=== PATIENT | female | born 1995 | race Caucasian/White ===

== ENCOUNTER 2018-01-02 22:26 | Inpatient (IN) | payer BC ==
[2018-01-02] MEDS ORDERED: ACETAMINOPHEN 325 MG TAB PO (23:00)
[2018-01-02] MEDS: ONDANSETRON 4 MG INJ IV (23:42)
[2018-01-02] MEDS: HYDROmorphONE 0.5 MG/0.5 ML SYG IV (23:43)
[2018-01-02] MEDS: SOD CHLORIDE 0.9% 1,000 ML IV (23:43)
[2018-01-02] MEDS: LEVOFLOXACIN 500MG/D5W (PMX) 100 ML IVPB (23:43)
[2018-01-03] MEDS: metroNIDAZOLE 500 MG/NS (PMX) 100 ML IVPB ×2 (01:04→06:10)
[2018-01-03] MEDS: morphine 2 MG INJ IV ×3 (01:05→10:36)
[2018-01-03] MEDS: ONDANSETRON 4 MG INJ IV ×3 (04:30→20:17)
[2018-01-03] MEDS: HYDROmorphONE 0.5 MG/0.5 ML SYG IV ×5 (04:30→22:26)
[2018-01-03] MEDS: PANTOPRAZOLE 40 MG INJ IV ×2 (06:10→20:17)
[2018-01-03 06:21] LABS: ADD MAN DIFF? NO
[2018-01-03 06:32] LABS: EOSINOPHILS # 0.1 10^3/ul (0.0-0.5); EOSINOPHILS % 1.2 % (0.0-7.0); HEMATOCRIT 36.2 % (37.0-47.0); HEMOGLOBIN 12.1 g/dl (12.0-16.0); LYMPHOCYTES # 1.6 10^3/ul (0.8-2.9); LYMPHOCYTES % 37.8 % (15.0-51.0); MEAN CORPUSCULAR HEMOGLOBIN 27.9 pg (29.0-33.0); MEAN CORPUSCULAR HGB CONC 33.4 g/dl (32.0-37.0); MEAN CORPUSCULAR VOLUME 83.4 fl (82.0-101.0); MEAN PLATELET VOLUME 10.9 fl (7.4-10.4); MONOCYTE # 0.3 10^3/ul (0.3-0.9); MONOCYTES % 7.7 % (0.0-11.0); NEUTROPHIL # 2.3 10^3/ul (1.6-7.5); NEUTROPHILS % 53.1 % (39.0-77.0); PLATELET COUNT 179 10^3/UL (140-415); RED BLOOD COUNT 4.34 10^6/ul (4.20-5.40); RED CELL DISTRIBUTION WIDTH 11.7 % (11.5-14.5)
[2018-01-03 06:32] LABS: WHITE BLOOD COUNT 4.3 10^3/ul (4.8-10.8)
[2018-01-03 06:57] LABS: ALANINE AMINOTRANSFERASE 25 IU/L (13-69); ALBUMIN 3.2 g/dl (3.3-4.9); ALBUMIN/GLOBULIN RATIO 1.23; ALKALINE PHOSPHATASE 35 IU/L (42-121); ANION GAP 12 (8-16); ASPARTATE AMINO TRANSFERASE 17 IU/L (15-46); BILIRUBIN,INDIRECT 0.5 mg/dl (0-1.1); BILIRUBIN,TOTAL 0.5 mg/dl (0.2-1.3); BLOOD UREA NITROGEN 4 mg/dl (7-20); CARBON DIOXIDE 29 mmol/L (21-31); CHLORIDE 107 mmol/L (97-110); CREATININE 0.89 mg/dl (0.44-1.00); GLUCOSE 74 mg/dl (70-220); POTASSIUM 4.2 mmol/L (3.5-5.1); SODIUM 144 mmol/L (135-144); TOTAL PROTEIN 5.8 g/dl (6.1-8.1)
[2018-01-03 07:10] LABS: INR 1.27; PROTIME 16.1 Sec (11.9-14.9); PT RATIO 1.3
[2018-01-03] MEDS ORDERED: LIDOCAINE 1%/EPI 30 ML INJ (10:54)
[2018-01-03] MEDS ORDERED: PROPOFOL 20 ML (11:58)
[2018-01-03] MEDS ORDERED: ROCURONIUM 50 MG INJ (11:58)
[2018-01-03] MEDS ORDERED: MIDAZOLAM 1 MG/ML 2 ML INJ (11:58)
[2018-01-03] MEDS ORDERED: LIDOCAINE 1% (MDV) 20 ML INJ (11:58)
[2018-01-03] MEDS ORDERED: ROPIVACAINE 0.2% 20 ML VIAL (12:07)
[2018-01-03] MEDS ORDERED: ACETAMINOPHEN 1000MG/100ML IV 100 ML (12:19)
[2018-01-03] MEDS ORDERED: DEXAMETHASONE 4 MG/ML 1 ML INJ (12:19)
[2018-01-03] MEDS ORDERED: ONDANSETRON 4 MG INJ (12:19)
[2018-01-03] MEDS ORDERED: FAMOTIDINE 20 MG INJ (12:20)
[2018-01-03] MEDS: SOD CHLORIDE 0.9% 1,000 ML IV ×2 (12:20→20:16)
[2018-01-03] MEDS: BUPIVACAINE 0.25% (MPF) 30 ML INJ (12:25)
[2018-01-03] MEDS: SUCRALFATE 1 GM TAB PO ×3 (13:00→20:17)
[2018-01-03] MEDS ORDERED: SUGAMMADEX SODIUM 200 MG/2 ML VIAL IV (13:05)
[2018-01-03] MEDS ORDERED: HYDROmorphONE (0.2 MG/ML) 10ML SYG IV ×2 (13:17→13:30)
[2018-01-03] MEDS: HYDROmorphONE (0.2 MG/ML) 10ML SYG IV (13:32)
[2018-01-03] MEDS ORDERED: KETOROLAC 30 MG INJ (13:47)
[2018-01-03] MEDS: KETOROLAC 30 MG INJ IV (13:52)
[2018-01-03] MEDS ORDERED: FENTAnyl 50 MCG/ML VIAL (14:06)
[2018-01-03] MEDS: FENTAnyl 50 MCG/ML VIAL IV (14:14)
[2018-01-03] MEDS ORDERED: FENTAnyl 50 MCG/ML VIAL IV (14:30)
[2018-01-03] MEDS: KETOROLAC 15 MG INJ IV ×2 (18:15→23:59)
[2018-01-03] MEDS: SENNA/DOCUSATE NA (8.6MG/50MG) TAB PO (20:17)
[2018-01-03] MEDS: HYDROCODONE/APAP (5/325) TAB PO (20:17)
[2018-01-03] MEDS ORDERED: HYDROmorphONE 0.5 MG/0.5 ML SYG IM (21:33)
[2018-01-04] MEDS: ONDANSETRON 4 MG INJ IV ×2 (00:33→05:52)
[2018-01-04] MEDS: HYDROmorphONE 2 MG/ML SYG IV ×7 (01:19→20:37)
[2018-01-04] MEDS: HYDROCODONE/APAP (5/325) TAB PO (05:51)
[2018-01-04] MEDS: KETOROLAC 15 MG INJ IV (05:52)
[2018-01-04] MEDS: PANTOPRAZOLE 40 MG INJ IV ×2 (09:17→20:37)
[2018-01-04] MEDS: SUCRALFATE 1 GM TAB PO ×4 (09:17→20:37)
[2018-01-04 09:57] LABS: ALANINE AMINOTRANSFERASE 36 IU/L (13-69); ALBUMIN 3.3 g/dl (3.3-4.9); ALBUMIN/GLOBULIN RATIO 1.32; ALKALINE PHOSPHATASE 37 IU/L (42-121); ANION GAP 15 (8-16); ASPARTATE AMINO TRANSFERASE 40 IU/L (15-46); BILIRUBIN,INDIRECT 0.6 mg/dl (0-1.1); BILIRUBIN,TOTAL 0.6 mg/dl (0.2-1.3); BLOOD UREA NITROGEN 9 mg/dl (7-20); CALCIUM 8.6 mg/dl (8.4-10.2); CARBON DIOXIDE 25 mmol/L (21-31); CHLORIDE 107 mmol/L (97-110); CREATININE 0.86 mg/dl (0.44-1.00); GLUCOSE 81 mg/dl (70-220); POTASSIUM 4.2 mmol/L (3.5-5.1); SODIUM 143 mmol/L (135-144); TOTAL PROTEIN 5.8 g/dl (6.1-8.1)
[2018-01-04] MEDS: SOD CHLORIDE 0.9% 1,000 ML IV ×2 (10:35→15:00)
[2018-01-04] MEDS ORDERED: BISACODYL 10 MG SUPP PR (19:30)
[2018-01-05] MEDS: HYDROmorphONE 2 MG/ML SYG IV ×4 (00:15→13:24)
[2018-01-05] MEDS: SOD CHLORIDE 0.9% 1,000 ML IV ×3 (00:15→13:52)
[2018-01-05] MEDS: SUCRALFATE 1 GM TAB PO ×2 (09:24→13:23)
[2018-01-05] MEDS: PANTOPRAZOLE 40 MG INJ IV (09:24)
[2018-01-05] MEDS: POLYETHYLENE GLYCOL 17 GM PACKET PO (09:25)
== END 2018-01-05 15:25 | disposition home or self-care (01) | DRG 418 ==
LOC: MS2 22:26
PROC: 0FT44ZZ Resection of Gallbladder, Percutaneous Endoscopic Approach (ICD-10-PCS; principal; 2018-01-03 11:00)
PROC: 0FB04ZX Excision of Liver, Percutaneous Endoscopic Approach, Diagnostic (ICD-10-PCS; 2018-01-03 11:00)
DX: K80.20 Calculus of gallbladder without cholecystitis without obstruction (principal); Z68.1 Body mass index [BMI] 19.9 or less, adult; E44.0 Moderate protein-calorie malnutrition; K29.80 Duodenitis without bleeding; K29.70 Gastritis, unspecified, without bleeding; K44.9 Diaphragmatic hernia without obstruction or gangrene; K25.9 Gastric ulcer, unspecified as acute or chronic, without hemorrhage or perforation; K59.00 Constipation, unspecified; F32.9 Major depressive disorder, single episode, unspecified; F17.210 Nicotine dependence, cigarettes, uncomplicated
CPT/HCPCS: 76856; 80053; 85025; 85610; 87081; 88304; 88307; 88313

== ENCOUNTER 2018-08-23 15:16 | Emergency (ER) | payer BC ==
[2018-08-23 15:54] LABS: ADD MAN DIFF? NO
[2018-08-23] MEDS: ONDANSETRON 4 MG INJ IV ×2 (15:55→16:23)
[2018-08-23] MEDS: SOD CHLORIDE 0.9% 1,000 ML IV (15:55)
[2018-08-23 15:58] LABS: BASOPHILS % 0.1 % (0.0-2.0); HEMATOCRIT 45.4 % (37.0-47.0); HEMOGLOBIN 14.9 g/dl (12.0-16.0); LYMPHOCYTES # 0.6 10^3/ul (0.8-2.9); MEAN CORPUSCULAR HEMOGLOBIN 27.4 pg (29.0-33.0); MEAN CORPUSCULAR HGB CONC 32.8 g/dl (32.0-37.0); MEAN CORPUSCULAR VOLUME 83.6 fl (82.0-101.0); MEAN PLATELET VOLUME 10.4 fl (7.4-10.4); MONOCYTE # 0.1 10^3/ul (0.3-0.9); NEUTROPHIL # 8.4 10^3/ul (1.6-7.5); NEUTROPHILS % 91.7 % (39.0-77.0); PLATELET COUNT 293 10^3/UL (140-415); RED BLOOD COUNT 5.43 10^6/ul (4.20-5.40); RED CELL DISTRIBUTION WIDTH 14.2 % (11.5-14.5)
[2018-08-23 15:58] LABS: WHITE BLOOD COUNT 9.1 10^3/ul (4.8-10.8)
[2018-08-23 16:17] LABS: ALANINE AMINOTRANSFERASE 16 IU/L (13-69); ALBUMIN 4.9 g/dl (3.3-4.9); ALKALINE PHOSPHATASE 88 IU/L (42-121); ANION GAP 15 (5-13); ASPARTATE AMINO TRANSFERASE 39 IU/L (15-46); BILIRUBIN,INDIRECT 0.3 mg/dl (0-1.1); BILIRUBIN,TOTAL 0.3 mg/dl (0.2-1.3); BLOOD UREA NITROGEN 7 mg/dl (7-20); CALCIUM 9.9 mg/dl (8.4-10.2); CARBON DIOXIDE 18 mmol/L (21-31); CHLORIDE 100 mmol/L (97-110); CREATININE 0.55 mg/dl (0.44-1.00); Estimated GFR > 60 mL/min (>60); GLUCOSE 193 mg/dl (70-220); LIPASE 50 U/L (23-300); POTASSIUM 4.7 mmol/L (3.5-5.1); SODIUM 133 mmol/L (135-144); TOTAL PROTEIN 8.4 g/dl (6.1-8.1)
[2018-08-23] MEDS: LORAZEPAM 2 MG INJ IV (16:24)
[2018-08-23] MEDS: HYDROmorphONE 1 MG/ML SYG IV (16:24)
[2018-08-23] MEDS: DEXTROSE 5%-0.45% NACL 500 ML BAG IV (17:07)
[2018-08-23] MEDS: ONDANSETRON (ODT) 4 MG TAB ODT (17:49)
[2018-08-23] MEDS: HYDROCODONE/APAP (10/325) TAB PO (17:49)
== END 2018-08-23 18:08 | disposition home or self-care (01) ==
LOC: FTE 15:16 → E/R 18:08
DX: R10.9 Unspecified abdominal pain (principal); F11.20 Opioid dependence, uncomplicated; E86.0 Dehydration; F17.210 Nicotine dependence, cigarettes, uncomplicated
CPT/HCPCS: 36415; 80053; 83690; 84703; 85025; 96374; 96375; 96376; 99284-25

== ENCOUNTER 2018-10-05 21:24 | Emergency (ER) | payer SELFPAY, BC | END 2018-10-05 22:17 | disposition left against medical advice (07) | LOC: E/R 21:24 | DX: Z53.21 Procedure and treatment not carried out due to patient leaving prior to being seen by health care provider (principal) ==

== ENCOUNTER 2018-10-06 23:40 | Inpatient (IN) | payer BC ==
[2018-10-07] MEDS ORDERED: ACETAMINOPHEN 325 MG TAB PO (01:30)
[2018-10-07] MEDS: SOD CHLORIDE 0.9% 1,000 ML IV ×3 (01:45→17:48)
[2018-10-07] MEDS: morphine 2 MG INJ IV ×7 (01:49→21:34)
[2018-10-07] MEDS: ONDANSETRON 4 MG INJ IV ×2 (02:47→13:05)
[2018-10-07] MEDS ORDERED: PANTOPRAZOLE 40 MG INJ (04:17)
[2018-10-07] MEDS: HYDROCODONE/APAP (5/325) TAB PO (04:51)
[2018-10-07] MEDS: CYCLOBENZAPRINE 10 MG TAB PO ×3 (05:40→20:52)
[2018-10-07] MEDS: METOCLOPRAMIDE 10 MG INJ IV ×2 (05:50→10:56)
[2018-10-07] MEDS ORDERED: METOCLOPRAMIDE 10 MG INJ IV (06:00)
[2018-10-07] MEDS: PANTOPRAZOLE 40 MG INJ IV (06:35)
[2018-10-07] MEDS: DIAZEPAM 2 MG TAB PO ×3 (08:56→20:52)
[2018-10-07] MEDS: LIDOCAINE 5% 35 GM OINT TOP ×3 (09:00→11:01)
[2018-10-07] MEDS: KETOROLAC 30 MG INJ IM (09:01)
[2018-10-07 09:32] LABS: ADD MAN DIFF? NO
[2018-10-07 09:41] LABS: HEMATOCRIT 41.7 % (37.0-47.0); HEMOGLOBIN 13.9 g/dl (12.0-16.0); LYMPHOCYTES # 1.9 10^3/ul (0.8-2.9); LYMPHOCYTES % 20.5 % (15.0-51.0); MEAN CORPUSCULAR HEMOGLOBIN 26.9 pg (29.0-33.0); MEAN CORPUSCULAR HGB CONC 33.3 g/dl (32.0-37.0); MEAN CORPUSCULAR VOLUME 80.8 fl (82.0-101.0); MEAN PLATELET VOLUME 10.9 fl (7.4-10.4); MONOCYTE # 0.4 10^3/ul (0.3-0.9); NEUTROPHIL # 6.8 10^3/ul (1.6-7.5); NEUTROPHILS % 75.3 % (39.0-77.0); PLATELET COUNT 228 10^3/UL (140-415); RED BLOOD COUNT 5.16 10^6/ul (4.20-5.40); RED CELL DISTRIBUTION WIDTH 12.4 % (11.5-14.5)
[2018-10-07 09:52] LABS: ANION GAP 13 (5-13); BLOOD UREA NITROGEN 7 mg/dl (7-20); CALCIUM 9.3 mg/dl (8.4-10.2); CARBON DIOXIDE 22 mmol/L (21-31); CHLORIDE 102 mmol/L (97-110); CREATINE KINASE 35 IU/L (23-200); CREATININE 0.65 mg/dl (0.44-1.00); Estimated GFR > 60 mL/min (>60); GLUCOSE 111 mg/dl (70-220); POTASSIUM 3.8 mmol/L (3.5-5.1); SODIUM 137 mmol/L (135-144)
[2018-10-07] MEDS: NAPROXEN 250 MG TAB PO ×3 (09:53→20:52)
[2018-10-07 10:04] LABS: CK INDEX 0.6; CK-MB < 0.22 ng/ml (0.0-2.4); TROPONIN-I < 0.012 ng/ml (0.000-0.120)
[2018-10-07] MEDS: LIDOCAINE 5% PATCH TD (10:56)
[2018-10-07 16:46] LABS: ALANINE AMINOTRANSFERASE 30 IU/L (13-69); ALBUMIN 4.4 g/dl (3.3-4.9); ALKALINE PHOSPHATASE 64 IU/L (42-121); ASPARTATE AMINO TRANSFERASE 18 IU/L (15-46); BILIRUBIN,INDIRECT 0.4 mg/dl (0-1.1); BILIRUBIN,TOTAL 0.4 mg/dl (0.2-1.3); TOTAL PROTEIN 6.8 g/dl (6.1-8.1)
[2018-10-07 16:47] LABS: LIPASE 46 U/L (23-300)
[2018-10-07] MEDS: DICYCLOMINE 10 MG CAP PO ×2 (17:45→22:22)
[2018-10-08] MEDS: ONDANSETRON 4 MG INJ IV ×2 (00:42→06:33)
[2018-10-08] MEDS: morphine 2 MG INJ IV ×4 (02:48→13:05)
[2018-10-08 06:21] LABS: ADD MAN DIFF? NO
[2018-10-08] MEDS: DICYCLOMINE 10 MG CAP PO ×2 (06:33→14:00)
[2018-10-08] MEDS: PANTOPRAZOLE 40 MG INJ IV (06:33)
[2018-10-08 06:42] LABS: BASOPHILS % 0.1 % (0.0-2.0); EOSINOPHILS % 0.1 % (0.0-7.0); HEMATOCRIT 40.4 % (37.0-47.0); HEMOGLOBIN 13.5 g/dl (12.0-16.0); LYMPHOCYTES # 3.2 10^3/ul (0.8-2.9); LYMPHOCYTES % 35.7 % (15.0-51.0); MEAN CORPUSCULAR HEMOGLOBIN 27.5 pg (29.0-33.0); MEAN CORPUSCULAR HGB CONC 33.4 g/dl (32.0-37.0); MEAN CORPUSCULAR VOLUME 82.3 fl (82.0-101.0); MEAN PLATELET VOLUME 10.6 fl (7.4-10.4); MONOCYTE # 0.5 10^3/ul (0.3-0.9); MONOCYTES % 5.6 % (0.0-11.0); NEUTROPHIL # 5.1 10^3/ul (1.6-7.5); NEUTROPHILS % 58.3 % (39.0-77.0); PLATELET COUNT 239 10^3/UL (140-415); RED BLOOD COUNT 4.91 10^6/ul (4.20-5.40); RED CELL DISTRIBUTION WIDTH 12.2 % (11.5-14.5)
[2018-10-08 06:42] LABS: WHITE BLOOD COUNT 8.8 10^3/ul (4.8-10.8)
[2018-10-08 06:58] LABS: ANION GAP 10 (5-13); BLOOD UREA NITROGEN 9 mg/dl (7-20); CARBON DIOXIDE 23 mmol/L (21-31); CHLORIDE 108 mmol/L (97-110); CREATININE 0.68 mg/dl (0.44-1.00); Estimated GFR > 60 mL/min (>60); GLUCOSE 94 mg/dl (70-220); POTASSIUM 3.5 mmol/L (3.5-5.1); SODIUM 141 mmol/L (135-144)
[2018-10-08] MEDS: LIDOCAINE 5% PATCH TD (09:00)
[2018-10-08] MEDS: CYCLOBENZAPRINE 10 MG TAB PO (09:00)
[2018-10-08] MEDS: NAPROXEN 250 MG TAB PO ×2 (09:00→13:00)
[2018-10-08] MEDS: DIAZEPAM 2 MG TAB PO ×2 (09:00→13:00)
[2018-10-08] MEDS: SOD CHLORIDE 0.9% 1,000 ML IV (11:17)
[2018-10-08] MEDS ORDERED: morphine LIQ (10 MG/5 ML) CUP PO (15:30)
== END 2018-10-08 15:30 | disposition home or self-care (01) | DRG 392 ==
LOC: PP2 10-07 00:05 → 2NE 10-08 00:34 → PP2 23:40
DX: R10.12 Left upper quadrant pain (principal); Z68.1 Body mass index [BMI] 19.9 or less, adult; F32.9 Major depressive disorder, single episode, unspecified; R11.2 Nausea with vomiting, unspecified; N80.9 Endometriosis, unspecified; M25.512 Pain in left shoulder; M25.511 Pain in right shoulder; M54.2 Cervicalgia; F41.9 Anxiety disorder, unspecified; R63.4 Abnormal weight loss; R51 Headache; Z90.49 Acquired absence of other specified parts of digestive tract
CPT/HCPCS: 76705; 76856; 80048; 80076; 82550; 82553; 83690; 84484; 85025

== ENCOUNTER 2018-10-31 09:20 | Outpatient (CLI) | payer BC | END 2018-10-31 09:25 | disposition home or self-care (01) | LOC: SDS 09:20 → LAB 09:24 | DX: Z01.818 Encounter for other preprocedural examination (principal); R10.2 Pelvic and perineal pain; N94.6 Dysmenorrhea, unspecified; N92.1 Excessive and frequent menstruation with irregular cycle; N94.10 Unspecified dyspareunia | CPT/HCPCS: 84702; 86850; 86900; 86901 ==